=== PATIENT | female | born 1985 | race Caucasian/White ===

== ENCOUNTER → 2018-12-31 | Outpatient (CLI) | payer BC ==
[~2018-12-31] MED LIST: ACE3 PO; FAM20 PO; IBU800 PO; MET10 PO; MOM PO; OND4 PO; PREN-85 PO
--- NOTE | 2018-12-31 09:28 | RADIOLOGY IMAGING REPORT ---
[place] [facility] [place] Charley Cruz : 1985 MR: [id number] V: [id number] EXAM DATE: ORDERING PHYSICIAN: AMILCAR CABALLERO TECHNOLOGIST: Location: [facility] [place] Patient: Charley Cruz : 1985 Visit/Account:[id number] Date of Sevice: 12/31/2018 CHEST PA LAT Additional pertinent History: Coughing x2 weeks COMPARISON STUDIES: None FINDINGS: Support lines and catheters: None Lungs and Pleura: There is a patchy ill-defined infiltrate noted in the inferior lateral aspect of t he left lung which on the lateral film appears to be in the anterior segment of the left lower lung. No additional abnormalities noted Heart and vasculature: Negative. Ignacia and Mediastinum: Negative. Bones and Chest wall: Negative. Upper Abdomen: Negative. IMPRESSION: 1. Patchy infiltrative change noted in the left lower lung in the anterior segment on the lateral fi lm compatible with probable developing pneumonic infiltrate. Recommend clinical correlation appropri ate follow-up. Report Dictated By: Rah Gonzales MD at 12/31/2018 9:18 AM Report E-Signed By: Rah Gonzales MD at 12/31/2018 9:22 AM WSN:[id number]
== END ==
LOC: RAD 09:02
PROVIDERS: ATTEND Family Medicine
DX: J20.9 Acute bronchitis, unspecified (principal)
CPT/HCPCS: 71046